=== PATIENT | male | born 1980 | race Two or more races ===

== ENCOUNTER 2017-03-22 01:49 | Emergency (ER) | payer MEDICAID ==
[~2017-03-22] VITALS: Ht 190.5 cm; Wt 113.4 kg
[2017-03-22] MEDS ORDERED: ONDANSETRON HCL 4 MG/2 ML VIAL IV ONE (03:00)
[2017-03-22] MEDS ORDERED: HYDROmorphone HCL 2 MG/ML VL IV ONE ×2 (03:00→05:45)
[2017-03-22] MEDS ORDERED: KETOROLAC TROMETH 30 MG/ML 1ML VIAL IV ONE (03:00)
[2017-03-22 03:16] LABS: Basophils # (auto) 0.1 uL; Basophils % (auto) 0.7 % (0.0-2.0); CONDITION Y; Eosinophils # (auto) 0.2 uL; Eosinophils % (auto) 1.7 % (0.0-7.0); Hematocrit 48.6 % (41.0-53.0); Hemoglobin 16.7 g/dL (13.5-17.5); Lymphocytes # (auto) 3.3 uL; Lymphocytes % (auto) 27.4 % (10.0-50.0); Mean Corpuscular Hemoglobin 29.9 pg (28.0-32.0); Mean Corpuscular Hgb Conc. 34.3 g/dL (32.0-36.0); Mean Corpuscular Volume 87.1 fL (80.0-100.0); Mean Platelet Volume 9.3 fL (7.4-10.4); Monocytes # (auto) 0.7 uL; Monocytes % (auto) 6.1 % (0.0-12.0); Neutrophils # (auto) 7.6 uL; Neutrophils % (auto) 64.1 % (37.0-80.0); Platelet Count (auto) 196 10^3/uL (140-450); Red Cell Distribution Width 13.8 % (11.6-16.0); White Blood Cell 11.9 10^3/uL (4.4-10.8)
[2017-03-22 03:21] LABS: Urine Bilirubin Negative (Negative); Urine Blood Negative /uL (Negative); Urine Color Yellow (Yellow); Urine Glucose Normal (Normal); Urine Ketone Negative (Negative); Urine Mucus FEW (None Seen); Urine Nitrite Negative (Negative); Urine RBC 1 /hpf (0 - 3); Urine Urobilinogen Normal (Negative); Urine pH 6.5 (5.0-8.0)
[2017-03-22 03:38] LABS: Albumin 3.6 g/dL (3.4-5.0); BUN/Creatinine Ratio 14.5; Calcium 8.7 mg/dL (8.5-10.1); Magnesium 2.3 mg/dL (1.6-2.6); Potassium 3.6 mmol/L (3.5-5.1)
[2017-03-22 03:43] LABS: Bilirubin, Total 0.4 mg/dL (0.2-1.0); Total Protein 8.1 g/dL (6.4-8.2)
[2017-03-22] MEDS ORDERED: ASPirin-EC 325mg tab PO ONE (05:45)
[2017-03-22] MEDS ORDERED: hydrALAZINE HCL 20 MG/ML VL IV ONE (05:45)
[2017-03-22] MEDS ORDERED: NITROGLYCERIN 0.4MG/HR TOPICAL PATCH TD ONE (05:45)
[2017-03-22 08:06] VITALS: BP 151/75
== END 2017-03-22 08:33 | disposition left against medical advice (07) ==
LOC: ER 01:49
DX: I11.9 Hypertensive heart disease without heart failure (principal); R74.9 Abnormal serum enzyme level, unspecified; R10.9 Unspecified abdominal pain; Z88.6 Allergy status to analgesic agent; F17.210 Nicotine dependence, cigarettes, uncomplicated; Z87.442 Personal history of urinary calculi
CPT/HCPCS: 36415; 71010; 74176; 80053; 81001; 82150; 83690; 83735; 84484; 85025; 93005; 96374; 96375; 96376; 99285; J0360; J1170; J1885; J2405

== ENCOUNTER 2017-05-05 20:37 | Inpatient (IN) | payer MEDICAID ==
[~2017-05-05] VITALS: Ht 190.5 cm; Wt 125.6 kg
[2017-05-06 00:49] LABS: Basophils # (auto) 0.1 uL; Basophils % (auto) 0.5 % (0.0-2.0); CONDITION Y; Eosinophils # (auto) 0.4 uL; Hematocrit 40.7 % (41.0-53.0); Hemoglobin 14.1 g/dL (13.5-17.5); Lymphocytes # (auto) 3.3 uL; Lymphocytes % (auto) 30.5 % (10.0-50.0); Mean Corpuscular Hemoglobin 29.8 pg (28.0-32.0); Mean Corpuscular Hgb Conc. 34.5 g/dL (32.0-36.0); Mean Corpuscular Volume 86.3 fL (80.0-100.0); Mean Platelet Volume 9.3 fL (7.4-10.4); Monocytes # (auto) 0.7 uL; Monocytes % (auto) 6.6 % (0.0-12.0); Neutrophils # (auto) 6.4 uL; Neutrophils % (auto) 58.4 % (37.0-80.0); Platelet Count (auto) 176 10^3/uL (140-450); Red Cell Distribution Width 13.6 % (11.6-16.0); White Blood Cell 10.9 10^3/uL (4.4-10.8)
[2017-05-06 01:05] LABS: INR 0.95 (0.9-1.15); Partial Thromboplastin Time 35.9 sec (22.64-33.71); Prothrombin Time 10.4 sec (9.37-12.3)
[2017-05-06] MEDS ORDERED: HYDROmorphone HCL 2 MG/ML VL IV ONE (02:30)
[2017-05-06] MEDS ORDERED: ONDANSETRON HCL 4 MG/2 ML VIAL IV ONE (02:30)
[2017-05-06 03:02] LABS: Albumin 3.5 g/dL (3.4-5.0); BUN/Creatinine Ratio 11.3; Bilirubin, Total 0.7 mg/dL (0.2-1.0); Calcium 8.8 mg/dL (8.5-10.1); Magnesium 2.5 mg/dL (1.6-2.6); Potassium 3.7 mmol/L (3.5-5.1); Total Protein 7.9 g/dL (6.4-8.2)
[2017-05-06] MEDS ORDERED: ASPirin 81 mg TAB PO ONE (03:45)
[2017-05-06] MEDS ORDERED: ALLOPURINOL 300 MG TAB PO ONE (03:45)
[2017-05-06] MEDS ORDERED: ENALAPRIL MALEATE 2.5 MG TAB PO ONE (06:45)
[2017-05-06] MEDS ORDERED: NITROGLYCERIN 0.4 MG SL TAB SL PRN (06:45)
[2017-05-06] MEDS ORDERED: ONDANSETRON HCL 4 MG/2 ML VIAL IV PRN (06:45)
[2017-05-06] MEDS ORDERED: ACETAMINOPHEN 325 MG TAB PO PRN (06:45)
[2017-05-06] MEDS ORDERED: MORPHINE SULF INJ 2 MG/ML SYRINGE 1ML IV PRN (06:45)
[2017-05-06] MEDS ORDERED: cloNIDine HCL 0.1 MG TAB PO PRN (06:45)
[2017-05-06] MEDS ORDERED: TEMAZEPAM 15 MG CAP PO PRN (06:45)
[2017-05-06] MEDS: HCTZ 25 MG TAB PO SCH (07:47)
[2017-05-06] MEDS: LISINOPRIL 20 MG TAB PO SCH (07:48)
[2017-05-06 09:00] VITALS: BP 151/11
[2017-05-06] MEDS: FAMOTIDINE 20 MG TAB PO SCH ×2 (10:20→21:24)
[2017-05-06] MEDS: ENOXAPARIN SOD 40 MG/0.4 ML SYRINGE SC SCH (10:20)
[2017-05-06] MEDS: ASPirin 81 mg TAB PO SCH (10:21)
[2017-05-06] MEDS: ALLOPURINOL 100 MG TAB PO SCH ×2 (10:21→21:25)
[2017-05-06] MEDS: HYDROcodone-ACET 5/325MG TAB PO PRN ×2 (10:23→16:21)
[2017-05-06 12:50] VITALS: BP 151/101
[2017-05-06 13:00] VITALS: BP 150/96
[2017-05-06] MEDS: MORPHINE SULF INJ 2 MG/ML SYRINGE 1ML IV PRN ×2 (16:56→21:24)
[2017-05-06 17:00] VITALS: BP 152/90
[2017-05-06 20:00] VITALS: BP 152/100
[2017-05-07] MEDS: MORPHINE SULF INJ 2 MG/ML SYRINGE 1ML IV PRN ×4 (04:38→18:29)
[2017-05-07 04:49] VITALS: BP 156/99
[2017-05-07 06:05] LABS: Basophils # (auto) 0.1 uL; Basophils % (auto) 1.2 % (0.0-2.0); Eosinophils # (auto) 0.4 uL; Eosinophils % (auto) 4.9 % (0.0-7.0); Hematocrit 42.2 % (41.0-53.0); Hemoglobin 14.4 g/dL (13.5-17.5); Lymphocytes # (auto) 3.2 uL; Lymphocytes % (auto) 42.4 % (10.0-50.0); Mean Corpuscular Hemoglobin 29.8 pg (28.0-32.0); Mean Corpuscular Hgb Conc. 34.2 g/dL (32.0-36.0); Mean Corpuscular Volume 87.2 fL (80.0-100.0); Mean Platelet Volume 9.7 fL (7.4-10.4); Monocytes # (auto) 0.4 uL; Monocytes % (auto) 5.2 % (0.0-12.0); Neutrophils # (auto) 3.5 uL; Neutrophils % (auto) 46.3 % (37.0-80.0); Nucleated Red Blood Cells % 0.2 %; Platelet Count (auto) 147 10^3/uL (140-450); Red Cell Distribution Width 13.5 % (11.6-16.0); White Blood Cell 7.6 10^3/uL (4.4-10.8)
[2017-05-07 06:37] LABS: BUN/Creatinine Ratio 15.2; Calcium 9.2 mg/dL (8.5-10.1); Magnesium 2.4 mg/dL (1.6-2.6); Potassium 3.9 mmol/L (3.5-5.1)
[2017-05-07 06:46] LABS: Bilirubin, Total 0.3 mg/dL (0.2-1.0); Total Protein 6.7 g/dL (6.4-8.2)
[2017-05-07 07:31] VITALS: BP 144/94
[2017-05-07] MEDS: HYDROcodone-ACET 5/325MG TAB PO PRN ×3 (08:01→15:05)
[2017-05-07 08:09] VITALS: BP 144/94
[2017-05-07] MEDS: FAMOTIDINE 20 MG TAB PO SCH (10:00)
[2017-05-07] MEDS: LISINOPRIL 20 MG TAB PO SCH (10:00)
[2017-05-07] MEDS: ENOXAPARIN SOD 40 MG/0.4 ML SYRINGE SC SCH (11:21)
[2017-05-07] MEDS: ASPirin 81 mg TAB PO SCH (11:22)
[2017-05-07] MEDS: ALLOPURINOL 100 MG TAB PO SCH (11:23)
[2017-05-07] MEDS: HCTZ 25 MG TAB PO SCH (11:23)
[2017-05-07 11:34] VITALS: BP 146/85
[2017-05-07] MEDS ORDERED: ATORVASTATIN 20 MG TAB PO ONE (16:00)
[2017-05-07] MEDS ORDERED: METOPROLOL SUCCINATE XL 50 MG TAB PO SCH (16:00)
[2017-05-07 17:00] VITALS: BP 158/100
== END 2017-05-07 19:00 | disposition home or self-care (01) | DRG 199 ==
LOC: EDBD 20:37 → ER 20:44 → TELE 20:45 → TELE-WESTW 05-06 08:25
PROVIDERS: ADMIT Nurse Practitioner; ATTEND Internal Medicine
DX: I16.0 Hypertensive urgency (principal); I42.9 Cardiomyopathy, unspecified; R07.9 Chest pain, unspecified; I25.2 Old myocardial infarction; E66.01 Morbid (severe) obesity due to excess calories; I10 Essential (primary) hypertension; E78.5 Hyperlipidemia, unspecified; F32.9 Major depressive disorder, single episode, unspecified; D72.829 Elevated white blood cell count, unspecified; G47.33 Obstructive sleep apnea (adult) (pediatric); M10.071 Idiopathic gout, right ankle and foot; M79.89 Other specified soft tissue disorders; M06.4 Inflammatory polyarthropathy; Z87.442 Personal history of urinary calculi; Z87.891 Personal history of nicotine dependence; Z88.8 Allergy status to other drugs, medicaments and biological substances; Z68.34 Body mass index [BMI] 34.0-34.9, adult; Z88.1 Allergy status to other antibiotic agents
CPT/HCPCS: 36415; 71020; 80053; 80307; 83735; 83880; 84100; 84484; 84550; 85025; 85610; 85730; 93005; 93306; 93971; 96374; 96375; J2405

== ENCOUNTER 2017-06-20 19:27 | Emergency (ER) | payer MEDICAID ==
[~2017-06-20] VITALS: Ht 190.5 cm; Wt 117.9 kg
[2017-06-20 20:31] LABS: Basophils # (auto) 0.1 uL; Basophils % (auto) 1.4 % (0.0-2.0); Eosinophils # (auto) 0.3 uL; Eosinophils % (auto) 3.4 % (0.0-7.0); Hematocrit 44.4 % (41.0-53.0); Hemoglobin 15.6 g/dL (13.5-17.5); Lymphocytes # (auto) 2.4 uL; Lymphocytes % (auto) 27.4 % (10.0-50.0); Mean Corpuscular Hemoglobin 30.6 pg (28.0-32.0); Mean Corpuscular Volume 87.4 fL (80.0-100.0); Mean Platelet Volume 8.5 fL (6.9-10.8); Monocytes # (auto) 0.5 uL; Monocytes % (auto) 5.7 % (0.0-12.0); Neutrophils # (auto) 5.5 uL; Neutrophils % (auto) 62.1 % (37.0-80.0); Nucleated Red Blood Cells % 0.1 %; Platelet Count (auto) 178 10^3/uL (140-450); Red Cell Distribution Width 13.9 % (11.8-14.3); White Blood Cell 8.9 10^3/uL (4.4-10.8)
[2017-06-20 20:40] LABS: INR 0.95 (0.9-1.15); Partial Thromboplastin Time 32.6 sec (22.64-33.71); Prothrombin Time 10.3 sec (9.37-12.3)
[2017-06-20 20:46] LABS: Albumin 3.7 g/dL (3.4-5.0); BUN/Creatinine Ratio 10.1; Bilirubin, Total 0.4 mg/dL (0.2-1.0); Calcium 9.2 mg/dL (8.5-10.1); Potassium 3.8 mmol/L (3.5-5.1); Total Protein 8.3 g/dL (6.4-8.2)
[2017-06-20 22:22] VITALS: BP 179/118
[2017-06-20 22:37] LABS: Urine RBC None Seen /hpf (0 - 3)
[2017-06-20 22:44] LABS: Urine Bilirubin Negative (Negative); Urine Blood Negative /uL (Negative); Urine Color Colorless (Yellow); Urine Glucose Normal (Normal); Urine Ketone Negative (Negative); Urine Nitrite Negative (Negative); Urine Urobilinogen Normal (Negative); Urine pH 6.5 (5.0-8.0)
[2017-06-20] MEDS ORDERED: cloNIDine HCL 0.1 MG TAB PO ONE (22:45)
[2017-06-20] MEDS ORDERED: HYDROcodone-ACET 5/325MG TAB PO ONE (23:15)
== END 2017-06-21 00:16 | disposition home or self-care (01) ==
LOC: ER 19:27
DX: N39.0 Urinary tract infection, site not specified (principal); I10 Essential (primary) hypertension; Z87.442 Personal history of urinary calculi; F17.210 Nicotine dependence, cigarettes, uncomplicated; Z88.6 Allergy status to analgesic agent
CPT/HCPCS: 36415; 74176; 80053; 81001; 82150; 83690; 85025; 85610; 85730

== ENCOUNTER 2017-12-10 16:04 | Inpatient (IN) | payer MEDICAID ==
[~2017-12-10] VITALS: Ht 193 cm; Wt 115.9 kg
[2017-12-10] MEDS ORDERED: SODIUM CHLORIDE 0.9% 1,000 ML IVB ONE (16:17)
[2017-12-10] MEDS ORDERED: MORPHINE SULFATE 8mg/ml INJ SDV IV ONE (16:30)
[2017-12-10] MEDS ORDERED: ONDANSETRON HCL 4 MG/2 ML VIAL IV ONE (16:30)
[2017-12-10 16:46] LABS: Basophils # (auto) 0 uL; Basophils % (auto) 0.6 % (0.0-2.0); Eosinophils # (auto) 0.3 uL; Eosinophils % (auto) 3.4 % (0.0-7.0); Hematocrit 44.2 % (41.0-53.0); Lymphocytes # (auto) 1.4 uL; Lymphocytes % (auto) 18.2 % (10.0-50.0); Mean Corpuscular Hemoglobin 29.5 pg (28.0-32.0); Mean Corpuscular Hgb Conc. 33.9 g/dL (32.0-36.0); Mean Corpuscular Volume 87.2 fL (80.0-100.0); Monocytes # (auto) 0.4 uL; Monocytes % (auto) 5.4 % (0.0-12.0); Neutrophils # (auto) 5.7 uL; Neutrophils % (auto) 72.4 % (37.0-80.0); Nucleated Red Blood Cells % 0.1 %; Platelet Count (auto) 138 10^3/uL (140-450); Red Blood Cells 5.07 10^6/uL (4.5-5.90); Red Cell Distribution Width 13.8 % (11.8-14.3); White Blood Cell 7.9 10^3/uL (4.4-10.8)
[2017-12-10 17:05] LABS: Albumin 3.3 g/dL (3.4-5.0); BUN/Creatinine Ratio 6.4; Bilirubin, Total 0.5 mg/dL (0.2-1.0); Potassium 3.6 mmol/L (3.5-5.1); Total Protein 7.5 g/dL (6.4-8.2)
[2017-12-10 17:28] LABS: Urine Bacteria NONE SEEN /hpf (None Seen); Urine Blood 3+ /uL (Negative); Urine Specific Gravity 1.011 (1.001-1.035); Urine WBC 5 /hpf (0 - 3)
[2017-12-10] MEDS ORDERED: cefTRIAXone 1GM/10ml IVPUSH 10 ML IV ONE (18:15)
[2017-12-10] MEDS ORDERED: DEXTROSE (50%) 50ML SYRG IV PRN (18:30)
[2017-12-10] MEDS ORDERED: VANCOMYCIN PER PHARMACY 0 MG IV SCH (18:30)
[2017-12-10] MEDS ORDERED: POTASSIUM CHL 10 Meq TABLET PO ONE (18:45)
[2017-12-10] MEDS ORDERED: TEMAZEPAM 15 MG CAP PO PRN (18:45)
[2017-12-10] MEDS ORDERED: DOCUSATE SOD 100 MG CAP PO PRN (18:45)
[2017-12-10] MEDS ORDERED: NITROGLYCERIN 0.4 MG SL TAB SL PRN (18:45)
[2017-12-10] MEDS ORDERED: ACETAMINOPHEN 325 MG TAB PO PRN (18:45)
[2017-12-10] MEDS ORDERED: HCTZ 25 MG TAB PO ONE (18:45)
[2017-12-10] MEDS ORDERED: MORPHINE SULFATE 8mg/ml INJ SDV IV PRN (18:45)
[2017-12-10] MEDS: SODIUM CHLORIDE 0.9% 1,000 ML IV SCH ×2 (19:15→21:35)
[2017-12-10] MEDS: VANCOMYCIN 1,250 MG in D5W 5% 250 ML IV SCH (20:06)
[2017-12-10 21:05] VITALS: BP 172/108
[2017-12-10] MEDS: MORPHINE SULFATE 8mg/ml INJ SDV IV PRN (21:37)
[2017-12-10] MEDS: ONDANSETRON HCL 4 MG/2 ML VIAL IV PRN (21:38)
[2017-12-10 22:00] VITALS: BP 172/108
[2017-12-10] MEDS: InsuLIN REG 1unit/0.01ml Soln (100units/ml) SC SCH (22:00)
[2017-12-10] MEDS: METOPROLOL TARTRATE 25 MG TAB PO SCH (22:16)
[2017-12-10] MEDS: FAMOTIDINE 20 MG TAB PO SCH (22:16)
[2017-12-10] MEDS: ACCU-CHEK COMFORT CURVE STRIP VI SCH (22:17)
[2017-12-11] MEDS: ONDANSETRON HCL 4 MG/2 ML VIAL IV PRN ×2 (01:38→10:06)
[2017-12-11] MEDS: MORPHINE SULFATE 8mg/ml INJ SDV IV PRN ×6 (01:38→21:04)
[2017-12-11] MEDS: VANCOMYCIN 1,250 MG in D5W 5% 250 ML IV SCH (04:11)
[2017-12-11 05:00] VITALS: BP 155/111
[2017-12-11] MEDS: InsuLIN REG 1unit/0.01ml Soln (100units/ml) SC SCH ×4 (06:31→21:54)
[2017-12-11] MEDS: ACCU-CHEK COMFORT CURVE STRIP VI SCH ×4 (06:31→21:47)
[2017-12-11] MEDS: HYDROcodone-ACET 5/325MG TAB PO PRN ×4 (06:32→21:55)
[2017-12-11 06:40] LABS: Basophils # (auto) 0 uL; Basophils % (auto) 0.5 % (0.0-2.0); Eosinophils # (auto) 0.3 uL; Eosinophils % (auto) 3.2 % (0.0-7.0); Hematocrit 40.2 % (41.0-53.0); Hemoglobin 13.8 g/dL (13.5-17.5); Lymphocytes # (auto) 1.9 uL; Lymphocytes % (auto) 21.7 % (10.0-50.0); Mean Corpuscular Hemoglobin 30.1 pg (28.0-32.0); Mean Corpuscular Hgb Conc. 34.5 g/dL (32.0-36.0); Mean Corpuscular Volume 87.2 fL (80.0-100.0); Monocytes # (auto) 0.6 uL; Monocytes % (auto) 7.1 % (0.0-12.0); Neutrophils # (auto) 5.9 uL; Neutrophils % (auto) 67.5 % (37.0-80.0); Nucleated Red Blood Cells % 0.1 %; Platelet Count (auto) 136 10^3/uL (140-450); Red Blood Cells 4.61 10^6/uL (4.5-5.90); Red Cell Distribution Width 13.6 % (11.8-14.3); White Blood Cell 8.7 10^3/uL (4.4-10.8)
[2017-12-11 06:46] LABS: INR 0.95 (0.9-1.15); Prothrombin Time 10.3 sec (9.37-12.3)
[2017-12-11 07:04] LABS: Calcium 8.5 mg/dL (8.5-10.1); Potassium 3.3 mmol/L (3.5-5.1)
[2017-12-11 07:09] LABS: Bilirubin, Total 0.4 mg/dL (0.2-1.0)
[2017-12-11 08:16] VITALS: BP 161/91
[2017-12-11] MEDS: Boost Glucose Control 8 Ounces PO SCH ×3 (08:54→17:46)
[2017-12-11] MEDS: cefTRIAXone 1GM/10ml IVPUSH 10 ML IV SCH (08:55)
[2017-12-11 08:56] VITALS: BP 161/91
[2017-12-11] MEDS: FAMOTIDINE 20 MG TAB PO SCH ×2 (09:12→21:47)
[2017-12-11] MEDS: MULTIPLE VITAMIN TAB PO SCH (09:13)
[2017-12-11] MEDS: METOPROLOL TARTRATE 25 MG TAB PO SCH ×2 (09:14→21:47)
[2017-12-11] MEDS ORDERED: POTASSIUM CHL 10 Meq TABLET PO SCH (10:00)
[2017-12-11] MEDS ORDERED: HCTZ 25 MG TAB PO SCH (10:00)
[2017-12-11] MEDS ORDERED: POTASSIUM CHL 20 Meq TABLET PO ONE (11:15)
[2017-12-11] MEDS ORDERED: MORPHINE SULFATE 8mg/ml INJ SDV IV PRN (11:15)
[2017-12-11 13:00] VITALS: BP 162/96
[2017-12-11 15:14] LABS: Alcohol, Urine < 3.0 mg/dL (0-5); Amphetamine Screen, Urine NEGATIVE (NEGATIVE); Barbiturate Scree,Urine NEGATIVE (NEGATIVE); Benzodiazephine Screen, Urine NEGATIVE (NEGATIVE); Cannabinoid Screen, Urine NEGATIVE (NEGATIVE); Cocaine Screen, Urine NEGATIVE (NEGATIVE); Opiate Scree,Urine NEGATIVE (NEGATIVE); Phencyclidine Screen, Urine NEGATIVE (NEGATIVE)
[2017-12-11 16:46] VITALS: BP 204/114
[2017-12-11] MEDS: SODIUM CHLORIDE 0.9% 1,000 ML IV SCH ×2 (17:46→19:21)
[2017-12-11] MEDS: cloNIDine HCL 0.1 MG TAB PO PRN ×2 (17:47→23:28)
[2017-12-11 22:00] VITALS: BP 155/104
[2017-12-12] MEDS: MORPHINE SULFATE 8mg/ml INJ SDV IV PRN ×4 (01:04→14:22)
[2017-12-12] MEDS: SODIUM CHLORIDE 0.9% 1,000 ML IV SCH ×3 (01:04→14:17)
[2017-12-12 05:59] VITALS: BP 159/105
[2017-12-12] MEDS: ACCU-CHEK COMFORT CURVE STRIP VI SCH ×2 (06:20→11:56)
[2017-12-12] MEDS: InsuLIN REG 1unit/0.01ml Soln (100units/ml) SC SCH ×2 (06:20→11:55)
[2017-12-12] MEDS: HYDROcodone-ACET 5/325MG TAB PO PRN (06:22)
[2017-12-12 07:04] LABS: BUN/Creatinine Ratio 7.4; Calcium 8.9 mg/dL (8.5-10.1); Potassium 3.6 mmol/L (3.5-5.1)
[2017-12-12] MEDS: Boost Glucose Control 8 Ounces PO SCH ×2 (08:00→12:00)
[2017-12-12] MEDS: cefTRIAXone 1GM/10ml IVPUSH 10 ML IV SCH (08:31)
[2017-12-12] MEDS: cloNIDine HCL 0.1 MG TAB PO PRN (08:32)
[2017-12-12 09:00] VITALS: BP 164/104
[2017-12-12] MEDS: FAMOTIDINE 20 MG TAB PO SCH (10:50)
[2017-12-12] MEDS: MULTIPLE VITAMIN TAB PO SCH (10:50)
[2017-12-12] MEDS: METOPROLOL TARTRATE 25 MG TAB PO SCH (10:54)
[2017-12-12 12:13] VITALS: BP 143/94
[2017-12-12] MEDS ORDERED: amLODIPine BESYLATE 5 MG TAB PO ONE (14:45)
[2017-12-12] MEDS ORDERED: MORPHINE SULFATE 8mg/ml INJ SDV IV PRN (14:45)
[2017-12-12] MEDS ORDERED: HYDROcodone-ACET 5/325MG TAB PO PRN (14:45)
[2017-12-12] MEDS ORDERED: GLIP-115 PO (14:55)
[2017-12-12] MEDS ORDERED: IBUP800T24 PO (14:55)
[2017-12-12] MEDS ORDERED: CIPR-173 PO (14:55)
[2017-12-12] MEDS ORDERED: BLOO1KIT60 XX (14:55)
[2017-12-12] MEDS ORDERED: AMLO10TA2 PO (14:55)
[2017-12-12 15:49] VITALS: BP 143/94
[2017-12-12 16:26] VITALS: BP 142/84
[2017-12-12] MEDS ORDERED: TAMSULOSIN HYDROCHLORIDE 0.4 MG CAP PO SCH (18:00)
== END 2017-12-12 16:35 | disposition home or self-care (01) | DRG 465 ==
LOC: EDBD 16:04 → ER 16:04 → TELE 16:05 → CENTRAL 21:05 → TELE-CENTR 12-12 04:00
PROVIDERS: ADMIT Internal Medicine; ATTEND Hospitalist
DX: N20.2 Calculus of kidney with calculus of ureter (principal); D69.6 Thrombocytopenia, unspecified; E44.0 Moderate protein-calorie malnutrition; I11.9 Hypertensive heart disease without heart failure; N12 Tubulo-interstitial nephritis, not specified as acute or chronic; F17.210 Nicotine dependence, cigarettes, uncomplicated; E11.9 Type 2 diabetes mellitus without complications; Z82.49 Family history of ischemic heart disease and other diseases of the circulatory system; Z87.442 Personal history of urinary calculi; Z83.3 Family history of diabetes mellitus; Z68.31 Body mass index [BMI] 31.0-31.9, adult
CPT/HCPCS: 36415; 74018; 74176; 80048; 80053; 80202; 80307; 81001; 82962; 83036; 83605; 83690; 84443; 85025; 85610; 87040; 87086; 93306; 96361; 96365; 96375; J1815; J2270; J2405; J7060